=== PATIENT | male | born 1975 | race American Indian/Alaskan Native ===

== ENCOUNTER 2017-10-26 00:48 | Emergency (ER) | payer SELFPAY ==
[2017-10-26 01:19] VITALS: BP 155/95; PULSE 114; RESP 16; TEMP 98.3; O2SAT 98
[2017-10-26] MEDS ORDERED: Sodium Chloride 0.9% 1,000 ML IV SCH (01:30)
[2017-10-26] MEDS ORDERED: Morphine 4 MG/ML VIAL IVP ONE ×2 (02:02→03:37)
[2017-10-26] MEDS ORDERED: Morphine 4 MG/ML VIAL ONE ×2 (02:18→03:41)
[2017-10-26 02:41] LABS: BASO % 0.6 % (0.0-2.0); EOS % 0.8 % (0.0-4.0); HEMOGLOBIN 12.8 g/dL (12.0-18.0); LYMPH # 1.4 K/uL (1.0-4.3); LYMPH % 32.3 % (20.0-40.0); MEAN CELL VOLUME 89.5 fl (80.0-94.0); MEAN CORPUSCULAR HEMOGLOBIN 30.7 pg (27.0-31.0); MEAN CORPUSCULAR HGB CONC 34.3 g/dL (33.0-37.0); MEAN PLATELET VOLUME 7.1 fl (7.2-11.7); MONO # 0.4 K/uL (0.0-0.8); MONO % 10.3 % (0.0-10.0); NEUT # 2.5 K/uL (1.8-7.0); NRBC % 0.2 % (0.0-0.0); RBC 4.17 Mil/uL (4.40-5.90); RED CELL DISTRIBUTION WIDTH 13.3 % (11.5-14.5); WHITE BLOOD COUNT 4.4 K/uL (4.8-10.8)
--- NOTE | 2017-10-26 03:07 | ED PDOC ---
HPI: Abdomen Time Seen by Provider: 10/26/17 01:09 Chief Complaint (Nursing): Abdominal Pain Chief Complaint (Provider): Abdominal pain History Per: Patient History/Exam Limitations: no limitations Onset/Duration Of Symptoms: Days (1 day ago) Current Symptoms Are (Timing): Still Present Additional Complaint(s): 42 y/o male with a history of diverticulitis and HIV with a CD4 count of 800, presents to the ED complaining of abdominal pain, onset of 2 day ago. Patient reports of of 2 episodes of diarrhea and vomiting after eating a steak with sesame seeds last night at a [employer]. The next morning the patient reported of left sided abdominal pain and mild dysuria. He denies any fever or any past abdominal surgeries. Of note, patient is anti-viral. Past Medical History Reviewed: Historical Data, Nursing Documentation, Vital Signs Vital Signs: Last Vital Signs Temp 98.3 F 10/26/17 01:06 Pulse 114 H 10/26/17 01:06 Resp 16 10/26/17 01:06 BP 155/95 H 10/26/17 01:06 Pulse Ox 98 10/26/17 04:26 - Medical History PMH: Asthma, Diverticulitis, HIV - Surgical History Surgical History: No Surg Hx - Family History Family History: States: Unknown Family Hx - Social History Current smoker - smoking cessation education provided: No Ex-Smoker (has not smoked in the last 12 months): No Alcohol: None Drugs: Denies - Home Medications Home Medications: Ambulatory Orders Medication Instructions Recorded Acetaminophen with Codeine 1 each PO TID PRN #15 tablet 10/26/17 [Tylenol with Codeine #3 Tablet] - Allergies Allergies/Adverse Reactions: Allergies Allergy/AdvReac Type Severity Reaction Status Date / Time No Known Allergies Allergy Verified 10/26/17 01:20 Review of Systems ROS Statement: Except As Marked, All Systems Reviewed And Found Negative Constitutional: Negative for: Fever Gastrointestinal: Positive for: Vomiting, Abdominal Pain, Diarrhea Genitourinary Male: Positive for: Dysuria Physical Exam - Reviewed Nursing Documentation Reviewed: Yes Vital Signs Reviewed: Yes - Physical Exam Appears: Positive for: Non-toxic, No Acute Distress Head Exam: Positive for: ATRAUMATIC Skin: Positive for: Normal Color, Warm, Dry Eye Exam: Positive for: Normal appearance, EOMI, PERRL ENT: Positive for: Normal ENT Inspection Neck: Positive for: Normal Cardiovascular/Chest: Positive for: Regular Rate, Rhythm. Negative for: Murmur Respiratory: Positive for: Normal Breath Sounds. Negative for: Respiratory Distress Gastrointestinal/Abdominal: Positive for: Normal Exam, Soft, Tenderness (left sided abdominal tenderness) Back: Positive for: Normal Inspection Extremity: Positive for: Normal ROM. Negative for: Pedal Edema, Deformity Neurologic/Psych: Positive for: Alert, Oriented. Negative for: Motor/Sensory Deficits - Laboratory Results Result Diagrams: 10/26/17 02:34 10/26/17 02:34 - ECG O2 Sat by Pulse Oximetry: 98 (RA) Pulse Ox Interpretation: Normal Medical Decision Making Medical Decision Making: Time: --01:21 Impression: --left sided abdominal tenderness Plan: --CT ABD and Pelvis with IV Contrast - to r/o acute diverticulitis --Labs --Lipase --Pepcid 20mg IVP --Morphine 4mg IVP --IV Fluids --Zofran 4mg IVP --Urine Culture --Iv Insetion --Urinalysis Reassess Labs reviewed : wbc & CMP is wnl, UA shows +blood, no evidence of infection. Patient went to CT and returned without any incident. On re-evaluation, patient continues of complain of L sided abdominal pain with no nausea. On exam, abdomen remains soft with mild L sided abdominal tenderness , with no guarding or rebound. CT results still pending. Medicated with another dose of morphine 4 mg IV and zofran [address] A/P w/ IV contrast : FINDINGS: Lower thorax: The bilateral lung bases are clear. ABDOMEN: Liver: Steatosis. Gallbladder and bile ducts: The gallbladder is decompressed. No calcified stones. No significant intra- or extrahepatic biliary ductal dilation. Pancreas: Enhances homogeneously. No ductal dilation. No discrete mass. Spleen: No acute findings. Adrenals: No acute findings. Kidneys and ureters: No acute findings. No hydronephrosis or renal calculi. Rounded focus of decreased attenuation is identified within the lower pole of the right kidney, statistically a cyst for which ultrasound may be performed for confirmation. No discrete solid mass. PELVIS: Bladder: No acute findings. Reproductive: No acute findings. Appendix: The air filled appendix is of normal caliber (series 3, image 127; series 601, image 60). ABDOMEN and PELVIS: Stomach and bowel: No obstruction. No mucosal thickening. Scattered colonic diverticulosis, without surrounding inflammation. Fat containing umbilical hernia. Peritoneum: No significant fluid collection. No free air. Lymph nodes: No pathologically enlarged lymph nodes. Vasculature: Unremarkable. Bones: No acute fracture. IMPRESSION: No acute intra-abdominal findings. Findings within the lower pole the right kidney, statistically a cyst for which ultrasound may be performed for confirmation. Diverticulosis without inflammation. Fat containing umbilical hernia. Dictated and Authenticated by: Maira Trimble MD 10/26/2017 4:02 AM Eastern Time ([place] & [place]) CT results show no evidence of acute diverticulitis or colitis. Considering that the patient has +blood in UA, symptoms of dysuria, location and sudden onset of L sided abdominal pain, patient may have renal colic. On re-evaluation, patient reports improvement of symptoms, denies any abdominal pain, nausea or diarrhea at this time. On exam, patient remains AAOx3, in no acute distress. Lungs clear to auscultation, cardiac RRR, abdomen soft, non- tender, repeat neuro exam shows no focal findings. Diagnostic results d/w the patient in great detail. Diagnosis of abdominal pain , to consider renal colic d/w the patient. Based on history, exam and diagnostic results, plan will be for outpatient follow up with pmd. Patient states that he is visiting from [facility] and will return in 2 days, he intends to f/u with his pmd as soon as he returns home. Patient instructed to follow-up with pmd in 1-2 days without fail. Advised to take medication as prescribed. Return to the emergency room at any time for any new or worsening symptoms. Patient states he fully agrees with and understands discharge instructions. States that he agrees with the plan and disposition. Verbalized and repeated discharge instructions and plan. I have given the patient opportunity to ask any additional questions. Scribe Attestation: Documented by Fausto Aguirre acting as a scribe for KAY Enriquez. Disposition - Clinical Impression Clinical Impression: Abdominal pain, Renal colic on left side - Patient ED Disposition Is Patient to be Admitted: No Counseled Patient/Family Regarding: Studies Performed, Diagnosis, Need For Followup - Disposition Disposition: Routine/Home Disposition Time: 04:15 Condition: STABLE Additional Instructions: Thank you for letting us take care of you today. You were treated for abdominal pain, to consider renal colic. The emergency medical care you received today was directed at your acute symptoms. If you were prescribed any medication, please fill it and take as directed. It may take several days for your symptoms to resolve. Return to the Emergency Department if your symptoms worsen, do not improve, or if you have any other problems. Please contact your doctor in 2 days for re-evaluation and follow up. Bring any paperwork you were given at discharge with you along with any medications you are taking to your follow up visit. Our treatment cannot replace ongoing medical care by a primary care provider (PCP) outside of the emergency department. Thank you for allowing the Dr. Z team to be part of your care today. Prescriptions: Acetaminophen with Codeine [Tylenol with Codeine #3 Tablet] 1 each PO TID PRN # 15 tablet PRN Reason: Pain, Moderate (4-7) Instructions: Renal Colic (ED), Acute Abdominal Pain (ED) Forms: [employer] (Bengali), [facility] ED School/Work Excuse Print Language: CITIZEN OF [place]
[2017-10-26 03:11] LABS: SQUAMOUS EPITHIAL < 1 /hpf (0-5); URINE BILIRUBIN NEGATIVE (NEGATIVE); URINE BLOOD MODERATE (NEGATIVE); URINE CLARITY SLIGHTY-CLOUDY (Clear); URINE COLOR YELLOW (YELLOW); URINE GLUCOSE (UA) NEG (Normal); URINE LEUKOCYTE ESTERASE NEG Leu/uL (Negative); URINE NITRATE NEGATIVE (NEGATIVE); URINE PROTEIN 30 mg/dL (NEGATIVE); URINE UROBILINOGEN 0.2-1.0 mg/dL (0.2-1.0)
[2017-10-26 03:12] LABS: ALB/GLOB RATIO 1.1 (1.0-2.1); ALBUMIN 4.5 g/dL (3.5-5.0); ALT/SGPT 26 U/L (21-72); AST/SGOT 41 U/L (17-59); BLOOD UREA NITROGEN 18 mg/dl (9-20); CALCIUM 9.6 mg/dL (8.4-10.2); GFR AFRICAN-AMERICAN > 60; GFR NON-AFRICAN AMERICAN > 60; LIPASE 236 U/L (23-300)
[2017-10-26] MEDS ORDERED: Sodium Chloride 0.9% 50 ML IV ONE (03:18)
[2017-10-26] MEDS ORDERED: Iohexol 300 100 ML IJ ONE (03:18)
--- NOTE | 2017-10-26 09:11 | CT ---
PROCEDURE: CT Abdomen and Pelvis with contrast HISTORY: L abd pain COMPARISON: None. TECHNIQUE: Contrast dose: 95 mL Omnipaque 300 Radiation dose: Total exam DLP = 972.5 mGy-cm. This CT exam was performed using one or more of the following dose reduction techniques: Automated exposure control, adjustment of the mA and/or kV according to patient size, and/or use of iterative reconstruction technique. FINDINGS: LOWER THORAX: Unremarkable. LIVER: Hepatic steatosis. No gross lesion or ductal dilatation. GALLBLADDER AND BILE DUCTS: Unremarkable. PANCREAS: Unremarkable. No gross lesion or ductal dilatation. SPLEEN: Unremarkable. ADRENALS: Unremarkable. No mass. KIDNEYS AND URETERS: Right midpole 1.7 centimeter cyst. No hydronephrosis. No solid mass. VASCULATURE: Unremarkable. No aortic aneurysm. BOWEL: Colonic diverticulosis. No obstruction. No gross mural thickening. APPENDIX: Normal appendix. PERITONEUM: Small fat containing umbilical hernia. Small bilateral fat containing inguinal hernias. No free fluid. No free air. LYMPH NODES: Unremarkable. No enlarged lymph nodes. BLADDER: Unremarkable. REPRODUCTIVE: Unremarkable. BONES: No acute fracture. OTHER FINDINGS: None. IMPRESSION: No acute abdominal pelvic pathology.
== END 2017-10-26 05:48 | disposition home or self-care (01) ==
LOC: H.ER 00:48
DX: N23 Unspecified renal colic (principal); K57.80 Diverticulitis of intestine, part unspecified, with perforation and abscess without bleeding; K42.9 Umbilical hernia without obstruction or gangrene; B20 Human immunodeficiency virus [HIV] disease; J45.909 Unspecified asthma, uncomplicated
CPT/HCPCS: 74177; 80053; 81003; 83690; 85025; 87086; 96374; 96375; 96376; 99282; J2270; J2405; J7040; Q9967